=== PATIENT | female | born 1995 | race Hispanic/Latino ===

== ENCOUNTER 2023-07-22 20:00 | Inpatient (IN) | payer MEDICAID, SELFPAY ==
[2023-07-22 21:24] VITALS: BMI 42.0
[2023-07-22] MEDS ORDERED: Promethazine HCl 25 MG/ML VIAL IM PRN (22:16)
[2023-07-22] MEDS ORDERED: Tranexamic Acid 1,000 MG/10 ML VIAL IVP PRN (22:16)
[2023-07-22] MEDS ORDERED: fentaNYL 50 mcg/mL 1 mL Vial SLOW IVP PRN (22:16)
[2023-07-22] MEDS ORDERED: Misoprostol 200 MCG TAB PR PRN (22:16)
[2023-07-22] MEDS ORDERED: Methylergonovine 0.2 MG/ML VIAL IM PRN (22:16)
[2023-07-22] MEDS ORDERED: Ibuprofen 800 MG TAB PO PRN (22:16)
[2023-07-22] MEDS ORDERED: hydrALAZINE 20 MG/ML VIAL SLOW IVP PRN (22:16)
[2023-07-22] MEDS ORDERED: HYDROcodone/Acetaminophen 5/325 mg Tablet PO PRN (22:16)
[2023-07-22] MEDS ORDERED: Acetaminophen 500 MG TAB PO PRN (22:16)
[2023-07-22] MEDS ORDERED: Diphenoxylate HCl/Atropine Tablet PO PRN (22:16)
[2023-07-22] MEDS ORDERED: Lidocaine 1% (PF) 30 ML VIAL SC PRN (22:16)
[2023-07-22] MEDS ORDERED: Carboprost 250 MCG/ML AMP IM PRN (22:16)
[2023-07-22] MEDS ORDERED: Ondansetron PF 4 MG/2 ML Vial IVP PRN (22:16)
[2023-07-22] MEDS ORDERED: Oxytocin 30 units/NS 500 ML 500 ML IV SCH ×2 (22:30)
[2023-07-22 23:21] LABS: Hematocrit 32.8 % (34.9-44.5); Hemoglobin 11.3 g/dL (12.0-15.5); Mean Corpuscular HGB CONC 34.5 g/dL (32.0-36.0); Mean Corpuscular Hemoglobin 26.2 pg (27.0-33.0); Mean Corpuscular Volume 76.1 fl (81.6-98.3); Mean Platelet Volume 12.5 fl (7.4-10.4); Platelet Count 278 10x3/uL (150-450); RBC Distribution Width 13.6 % (11.5-14.5); Red Blood Cell (RBC) Count 4.31 10x6/uL (3.90-5.03); White Blood Cell (WBC) Count 9.6 10x3/uL (3.5-10.5)
[2023-07-22 23:43] LABS: HBSAg Index 0.17 S/CO (0-0.99); Hep B Surf Ag - L&D Non-Reactive S/CO (NonReactive); Syphilis Antibody Nonreactive (Nonreactive); Syphilis Antibody Index 0.04 S/CO (<1.00 Non-Reactive)
[2023-07-23] MEDS: Lactated Ringer's 1,000 ML IV SCH (05:02)
[2023-07-23] MEDS: Oxytocin 30 units/NS 500 ML 500 ML IV SCH (05:02)
[2023-07-23] MEDS ORDERED: Bupivacaine 0.25% HCL 30 ML VIAL ONE (08:00)
[2023-07-23] MEDS: fentaNYL/Ropivacaine Epidural 100 ML ONE (09:30)
[2023-07-23] MEDS ORDERED: Lactated Ringer's 500 ML IV PRN (10:00)
[2023-07-23] MEDS ORDERED: Naloxone HCl 0.4 mg/ml Vial IVP PRN ×2 (10:00)
[2023-07-23] MEDS ORDERED: Ondansetron PF 4 MG/2 ML Vial IVP PRN ×2 (10:00→14:35)
[2023-07-23] MEDS ORDERED: Acetaminophen 325 MG TAB PO PRN (10:00)
[2023-07-23] MEDS ORDERED: fentaNYL 2 mcg/Ropivacaine 0.2% Epidural 100 ML CADD EPIDURAL SCH (10:00)
[2023-07-23] MEDS ORDERED: ePHEDrine Sulfate 50 MG/10 ML VIAL SLOW IVP PRN (10:00)
[2023-07-23] MEDS ORDERED: Moisturizing Cream (Eucerin) 113 GM JAR TOP PRN (10:00)
[2023-07-23] MEDS ORDERED: Promethazine HCl 25 MG/ML VIAL IM PRN (10:00)
[2023-07-23] MEDS ORDERED: Communication Order-Pharmacy FS SCH (10:00)
[2023-07-23] MEDS ORDERED: diphenhydrAMINE 50 MG/ML VIAL IVP PRN (10:00)
[2023-07-23] MEDS ORDERED: Boostrix 0.5 ML (Tdap) VIAL (>/=7 yrs of age) IM ONE (14:35)
[2023-07-23] MEDS ORDERED: hydrALAZINE 20 MG/ML VIAL SLOW IVP PRN (14:35)
[2023-07-23] MEDS ORDERED: Milk Of Magnesia 30 ML UDCUP PO PRN (14:35)
[2023-07-23] MEDS ORDERED: diphenhydrAMINE 25 MG CAP PO PRN (14:35)
[2023-07-23] MEDS ORDERED: Lanolin Ointment 7 GM TUBE TOP PRN (14:35)
[2023-07-23] MEDS ORDERED: HYDROcodone/Acetaminophen 5/325 mg Tablet PO PRN (14:35)
[2023-07-23] MEDS ORDERED: Benzocaine-Menthol 82.5 ML CAN TOP PRN (14:35)
[2023-07-23] MEDS ORDERED: Bisacodyl 10 MG SUPP PR PRN (14:35)
[2023-07-23] MEDS: Ibuprofen 800 MG TAB PO SCH (18:39)
[2023-07-23] MEDS: Ferrous Sulfate 325 MG TAB PO SCH (18:39)
[2023-07-23] MEDS: Docusate 100 MG CAP PO SCH (23:58)
[2023-07-24 07:55] VITALS: TEMP 98
[2023-07-24] MEDS: Prenatal Vitamin 1 TAB PO SCH (09:12)
[2023-07-24 11:08] VITALS: BP 118/68
== END 2023-07-24 17:30 | disposition home or self-care (01) | DRG 807 ==
LOC: CSHLD 20:00 → CSHPED 07-23 14:15
PROVIDERS: ADMIT Family Medicine; ATTEND Family Medicine
PROC: 10E0XZZ Delivery of Products of Conception, External Approach (ICD-10-PCS; principal; 2023-07-23)
PROC: 10907ZC Drainage of Amniotic Fluid, Therapeutic from Products of Conception, Via Natural or Artificial Opening (ICD-10-PCS; 2023-07-23)
PROC: 3E033VJ Introduction of Other Hormone into Peripheral Vein, Percutaneous Approach (ICD-10-PCS; 2023-07-23)
PROC: 0HQ9XZZ Repair Perineum Skin, External Approach (ICD-10-PCS; 2023-07-23)
DX: O24.12 Pre-existing type 2 diabetes mellitus, in childbirth (principal); Z37.0 Single live birth; O99.214 Obesity complicating childbirth; E66.9 Obesity, unspecified; Z3A.39 39 weeks gestation of pregnancy; O70.0 First degree perineal laceration during delivery
CPT/HCPCS: 36415; 36416; 51702; 85027; 86780; 86850; 86900; 86901; 87340; J0665; J2590; J7120